=== PATIENT | female | born 1960 | race Caucasian/White ===

== ENCOUNTER → 2021-10-17 | Outpatient (CLI) | payer BC, OTHER ==
[~2021-10-17] MED LIST: CALTRATE-600 W1 EACH PO; CLONAZEPAM 1 MG1 M1 PO; NORCO 7.5-3251 EACH PO; ONE DAILY FOR1 EAC3 PO; SIMVASTATIN40 MG PO; SYNTHROID125 MCG PO; TRAZODONE 150150 M1 PO; VENLAFAXINE HC225 MG PO
== END ==
LOC: SJCVCIMAG 08:13
PROVIDERS: ATTEND Internal Medicine Cardiovascular Disease
DX: I49.3 Ventricular premature depolarization (principal); I07.1 Rheumatic tricuspid insufficiency; R93.1 Abnormal findings on diagnostic imaging of heart and coronary circulation; J44.9 Chronic obstructive pulmonary disease, unspecified; R94.31 Abnormal electrocardiogram [ECG] [EKG]; F17.200 Nicotine dependence, unspecified, uncomplicated; Z82.49 Family history of ischemic heart disease and other diseases of the circulatory system